=== PATIENT | female | born 1955 | race Caucasian/White ===

== ENCOUNTER → 2020-09-10 16:26 | Outpatient (CLI) | payer MEDICARE, SELFPAY ==
--- NOTE | ~2020-09-10 | MM_ITS ---
EXAMINATION: MM screening don BI w davina HISTORY: Screening mammogram TECHNIQUE: Craniocaudal and mediolateral oblique 3-D tomosynthesis images were obtained and synthetic 2-D images were generated. CAD analysis was submitted and interpreted. COMPARISON: MR , 08/10/2017 bilateral digital screening mammogram examinations BREAST PARENCHYMAL COMPOSITION: The breasts are almost entirely fatty. FINDINGS: There is no evidence of suspicious mass, calcification, or architectural distortion to sugg est malignancy in either breast. There has been no suspicious interval change. IMPRESSION: 1. No mammographic evidence of malignancy. 2. Recommend routine screening mammography in one year. BI-RADS Category 1: Negative Reviewed, dictated and finalized at location A. 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
== END ==
PROVIDERS: PCP Internal Medicine; Visit Provider Internal Medicine
DX: Z12.31 Encounter for screening mammogram for malignant neoplasm of breast (principal)
CPT/HCPCS: 77063; 77067

== ENCOUNTER → 2022-01-11 13:34 | Outpatient (CLI) | payer MEDICARE, SELFPAY ==
--- NOTE | ~2022-01-11 | XR_ITS ---
EXAMINATION: XR chest 2V 01/11/2022 14:01 INDICATION: History of Covid. Shortness of breath. PROCEDURE: 2 view chest COMPARISON: No prior studies for comparison. FINDINGS: The lungs are clear. The cardiomediastinal silhouette is within normal limits. There are no pleural effusions. There is no pneumothorax suspected. Scoliosis. IMPRESSION: 1: NO ACUTE CARDIOPULMONARY DISEASE. Reviewed, dictated and finalized at location B.
--- NOTE | ~2022-01-11 | MM_ITS ---
EXAMINATION: MM screening don BI w davina HISTORY: Screening mammogram, family history of breast cancer in her sister. TECHNIQUE: Craniocaudal and mediolateral oblique 3-D tomosynthesis images were obtained and synthetic 2-D images were generated. CAD analysis was submitted and interpreted. COMPARISON: 09/10/2020, 12/13/2018 BREAST PARENCHYMAL COMPOSITION: The breasts are almost entirely fatty. FINDINGS: There is no evidence of suspicious mass, calcification, or architectural distortion to sugg est malignancy in either breast. There has been no suspicious interval change. IMPRESSION: 1. No mammographic evidence of malignancy. 2. Recommend routine screening mammography in one year. BI-RADS Category 1: Negative Reviewed, dictated and finalized at location A.
== END ==
PROVIDERS: PCP Internal Medicine; Visit Provider Internal Medicine
DX: Z12.31 Encounter for screening mammogram for malignant neoplasm of breast (principal); Z86.16 Personal history of COVID-19; R06.02 Shortness of breath
CPT/HCPCS: 71046; 77063; 77067

== ENCOUNTER 2022-12-17 13:49 | Outpatient (CLI) | payer MEDICARE, SELFPAY ==
--- NOTE | 2022-12-17 14:39 | ECG_ITS ---
Measurements Intervals [place] Rate: 72 P: 42 [place]: 150 QRS: 7 QRSD: 78 T: 13 QT: 360 QTc: 395 Interpretive Statements SINUS RHYTHM WITHIN NORMAL LIMITS NO PREVIOUS ECG AVAILABLE FOR COMPARISON Electronically Signed On 12-17-2022 15:35:51 SECOND CLASS WELDER by Lenard Haddad M.D.
[2022-12-17 15:10] LABS: Basophils Absolute Auto 0.1 K/mm3 (0.0-0.1); Basophils Percent Auto 1.1 % (0.2-1.2); Eosinophils Absolute Auto 0.1 K/mm3 (0-0.3); Eosinophils Percent Auto 1.6 % (0-4.4); Hematocrit 45.9 % (37.0-47.0); Hemoglobin 14.9 g/dL (12.0-15.0); Immature Granulocyte Absolute 0.01 K/mm3 (0.00-0.031); Immature Granulocyte Percent A 0.2 % (0-0.5); Lymphocytes Absolute Auto 1.23 K/mm3 (0.9-3.2); Lymphocytes Percent Auto 22.5 % (18.3-44.2); Mean Corpuscular HGB Conc 32.5 g/dl (32-36); Mean Corpuscular Hemoglobin 31.3 pg (26-34); Mean Corpuscular Volume 96.4 fl (80-100); Mean Platelet Volume 10.2 fl (7.4-10.4); Monocytes Absolute Auto 0.4 K/mm3 (0.1-0.6); Monocytes Percent Auto 7.1 % (2.6-8.5); Neutrophils Absolute Auto 3.7 K/mm3 (1.3-6.7); Neutrophils Percent Auto 67.5 % (45.5-73.1); Platelet Count Result 300 k/mm3 (150-375); Red Blood Count 4.76 M/mm3 (4.2-5.4); Red Cell Distribution Width 13.7 % (11.5-14.5); White Blood Count 5.5 K/mm3 (4.5-10.0)
[2022-12-17 15:20] LABS: Alanine Aminotransferase 21 U/L (6-35); Albumin Level 4.8 g/dL (3.5-5.1); Alkaline Phosphatase 76 U/L (38-126); Anion Gap 4 mmol/L (8-16); Aspartate Amino Transferase 24 U/L (14-36); Bilirubin,Total 0.6 mg/dL (0.2-1.3); Blood Urea Nitrogen 16 mg/dL (7-17); Calcium 9.5 mg/dL (8.4-10.2); Carbon Dioxide 31 mmol/L (22-30); Chloride 104 mmol/L (98-107); Estimated Glomerular Filt Rate > 60; Glucose 84 mg/dL (65-110); Potassium 4.4 mmol/L (3.4-5.0); Sodium 139 mmol/L (137-145)
[2022-12-17 15:22] LABS: Prothrombin Time 12.4 Seconds (11.1-14.7)
== END 2022-12-17 13:50 | disposition home or self-care (01) ==
PROVIDERS: PCP Family Medicine; Visit Provider Urology
DX: Z01.818 Encounter for other preprocedural examination (principal)
CPT/HCPCS: 36415; 80053; 85025; 85610; 85730; 86850; 86900; 86901; 93005

== ENCOUNTER 2022-12-27 01:33 | Day surgery (SDC) | payer MEDICARE, SELFPAY ==
[2022-12-17 13:59] VITALS: BMI 33.6
--- NOTE | 2022-12-17 14:20 | PC.NURSE ---
Addendum entered by Abbey Lewis RN 12/17/22 14:27: VITAMIN D3 HOLD 3 DAYS PRE OP.LAST DOSE 12/23/22 Original Note: Report to the Outpatient Waiting Room, entrance under the green pavilion located off [facility], at time ___0900____ on date _12/27/22 . Planned Procedure Time: __1100 . Time changes happen often and if your time is changed the preop area will call you the afternoon before. - You and your visitor will be asked to self-screen and do not enter if you have any COVID symptoms. - Only one visitor is requested with a max of two and NO children visitors are allowed at this time. - The patient visitor may be requested to leave or wait in car when not with patient due to distancing restrictions. - A mask is optional within the hospital at this time. Patients may have clear liquids (water, carbonated beverages, clear teas, apple juice) until 3 hours prior to surgery with a maximum of 20 ounces. - No food from midnight until time of surgery - Infants may have breast milk until 4 hours before surgery, formula 6 hours prior to surgery. - Children will be allowed to drink immediately following surgery. If applicable, please bring a bottle or sippy cup to assist with drinking. Juice, water, soda, and popsicles are readily available. For infants on formula, please bring formula the day of surgery. Pacifiers are allowed. Take the following medications with a SIP of water the morning of surgery: _FLUOXETINE DO NOT STOP ANY OF YOUR OTHER PRESCRIPTION MEDICATIONS PRIOR TO SURGERY ?EXCEPT THE FOLLOWING Medications to discontinue per physician ___PT STATES HOLD MELOXICAM 7 DAYS PRE OP PER DR MARIA. LAST DOSE 12/19/22 Please no make-up, nail egyptian, hairspray, perfume, deodorant, or body powder the day of surgery. No jewelry (including any body piercings) or valuables the day of surgery, leave them at home. Please take a shower or bath the night before, or the morning of, surgery with an antibacterial soap. Wear comfortable, loose fitting clothing. Children are encouraged to wear pajamas. - Jewelry must be removed prior to entering the operating room. Rings and piercings that are not removed may be cut off. - The hospital will not accept responsibility for valuables. - Please leave all valuables, including medications, at home the day of surgery. If you are going home after surgery, a licensed explosives truck driver must drive you home. - NO public transportation without another adult if you receive anesthesia. - We recommend that an adult stay with you for 24 hours following discharge. - We also recommend that you do not drive, make important decision, drink alcoholic beverages, or take any drugs that were not prescribed by your health care provider for at least 24 hours after your discharge time. For Pediatric surgeries, we recommend two adults accompany the child home. Follow any additional instructions given to you from your surgeon. If you or anyone in your household have experienced Covid symptoms in the past week, please notify your surgeon or the nurse liaison at the phone number below for possible testing. VERBAL AND WRITTEN instructions given to __PATIENT and asked if any additional questions and then verbalized understanding. Patient advised to call surgeon office or pre surgery nurse liaison [phone] if any additional questions.
[2022-12-17 14:37] VITALS: BP 155/89; PULSE 81; RESP 18; TEMP 37.2; O2SAT 98
--- NOTE | 2022-12-24 10:45 | PM.IMHP ---
H&P: HPI History of Present Illness Date/Time: 12/24/22 10:45 Chief Complaint: pelvic organ prolapse Narrative: this is a woman Who is status post hysterectomy. She has cystocele and loss of apical support. She has stress incontinence on urodynamics. She has a fixed urethra. She desires surgical correction. Review of Systems Review of Systems: All systems reviewed & are unremarkable except as noted in HPI and below PMFSH Past Medical History Medical History GENARO (generalized anxiety disorder) GERD (gastroesophageal reflux disease) MDD (major depressive disorder), recurrent episode Normal colonoscopy 12/2021 Surgical History Surgical History Hx of total knee arthroplasty bilateral S/P ORIF (open reduction internal fixation) fracture L ankle S/P JUAN-BSO Family History Family History Father Lung cancer Mother Pancreas cancer Diabetes mellitus Depression Heart disease Social History Social History Social History: Single Smoking packs per day: 0.5 Smoking cigarettes per day: 10.0 Years smoked: 20 Smoking pack-years: 10.00 Smoking status: Former smoker Tobacco type: cigarettes Second hand tobacco smoke exposure: No Smoking end date: 10/31/13 Alcohol intake: never Substance use: never Substance use type: does not use Living arrangements: alone Occupation/Education: occupation Gender identity (if verbalized by the patient): Female Sexual Orientation (if Verbalized by the Patient): Straight or Heterosexual Spiritual care concerns: No Meds Home Medications and Allergies Home Medications Medication Instructions Recorded Confirmed Type mecobalamin (vitamin B12) 10,000 1,000 mcg subcut MONTHLY 06/15/22 12/17/22 History mcg solution for injection meloxicam 7.5 mg tablet 7.5 mg PO BID #60 tabs 07/13/22 12/17/22 Rx fluoxetine 40 mg capsule (Prozac) 40 mg PO DAILY #90 caps 08/16/22 12/17/22 Rx pantoprazole 40 mg tablet,delayed 40 mg PO QAM #90 tabs 08/16/22 12/17/22 Rx release (Protonix) cholecalciferol (vitamin D3) 25 25 mcg PO DAILY 12/17/22 12/17/22 History mcg (1,000 unit) tablet semaglutide 1 mg/dose (4 mg/3 mL) 1 mg subcut WEEKLY WEIGHT LOSS 12/17/22 12/17/22 History subcutaneous pen injector (Ozempic) irbesartan 150 mg tablet 150 mg PO DAILY #30 tabs 12/21/22 12/21/22 Rx quetiapine 25 mg tablet (Seroquel) 25 mg PO QHS #60 tabs 12/21/22 12/21/22 Rx Allergies Allergy/AdvReac Type Severity Reaction Status Date / Time No Known Allergies Allergy Unknown Verified 12/21/22 13:29 Exam Narrative: No acute distress normal breathing vaginal foreshortening cystocele +3 apex at 0 fixed urethra Assessment and Plan Assessment and plan (1) Prolapse of vaginal vault after hysterectomy: Code(s): N99.3 - Prolapse of vaginal vault after hysterectomy Status: Acute (2) Intrinsic sphincter deficiency (ISD): Code(s): N36.42 - Intrinsic sphincter deficiency (ISD) Status: Acute Plan plan for robotic sacral colpopexy. Understands risks of bleeding, infection, damage surrounding organs or the urinary tract, inability to perform the procedure due to adhesions, recurrence of prolapse, dyspareunia, hip and leg pain, recurrent or persistent stress incontinence, urinary retention requiring a 2nd procedure, mesh related complications. Agrees to proceed
[2022-12-27] VITALS (8 sets, daily range): BP systolic 124–157; BP diastolic 66–113; PULSE 68–94; RESP 10–20; TEMP 36.6–37.2; O2SAT 98–100
--- NOTE | 2022-12-27 07:14 | WPDHPUPDATE1 ---
History and Physical Update Update Date/Time: 12/27/22 07:14 History and Physical has been reviewed, including an updated exam of the patient. There are NO changes in the patient's condition. Risks, benefits, and alternatives have been discussed and questions answered. Patient agrees to proceed with procedure.
[2022-12-27] MEDS: LACTATED RINGERS 1,000 ML 30 ML IV CONT ×2 (09:42→14:11)
--- NOTE | 2022-12-27 10:49 | WPDANESEPPF ---
Anes - Initial Pre Proc Eval Procedure: Operation Date: 12/27/22 11:00 Proposed Procedures p Robotic Sacrocolpopexy, - Chris Chowdhury MD s Cystoscopy, Injection Bulking Agent - Chris Chowdhury MD Date/Time: 12/27/22 10:49 Surgeon: Chris Chowdhury MD Pre Op Diagnosis: stress incont, incomp prolapse vag vault Patient Data Age: 67 Gender: F Height: 1.63 m Weight: 88.3 kg Last Vital Signs Temp 37.2 C 12/27/22 09:18 Pulse 84 12/27/22 09:18 Resp 16 12/27/22 09:18 BP 148/86 H 12/27/22 09:18 Pulse Ox 100 12/27/22 09:18 O2 Del Method Room Air 12/27/22 09:18 Allergies Allergy/AdvReac Type Severity Reaction Status Date / Time No Known Allergies Allergy Unknown Verified 12/27/22 09:08 Home Medications Medication Instructions Recorded Confirmed Type mecobalamin (vitamin B12) 10,000 1,000 mcg subcut MONTHLY 06/15/22 12/27/22 History mcg solution for injection meloxicam 7.5 mg tablet 7.5 mg PO BID #60 tabs 07/13/22 12/27/22 Rx fluoxetine 40 mg capsule (Prozac) 40 mg PO DAILY #90 caps 08/16/22 12/27/22 Rx pantoprazole 40 mg tablet,delayed 40 mg PO QAM #90 tabs 08/16/22 12/27/22 Rx release (Protonix) cholecalciferol (vitamin D3) 25 25 mcg PO DAILY 12/17/22 12/27/22 History mcg (1,000 unit) tablet semaglutide 1 mg/dose (4 mg/3 mL) 1 mg subcut WEEKLY WEIGHT LOSS 12/17/22 12/27/22 History subcutaneous pen injector (Ozempic) irbesartan 150 mg tablet 150 mg PO DAILY #30 tabs 12/21/22 12/27/22 Rx quetiapine 25 mg tablet (Seroquel) 25 mg PO QHS #60 tabs 12/21/22 12/27/22 Rx Patient hx anesthesia problems: none Family hx anesthesia problems: none Results Review: All pre-operative results and documents have been reviewed as part of the pre-operative evaluation. [facility] Past Medical History Medical History (Updated 12/27/22 @ 10:49 by Rodolfo Chaudhry MD) Arthritis GENARO (generalized anxiety disorder) GERD (gastroesophageal reflux disease) MDD (major depressive disorder), recurrent episode Normal colonoscopy 12/2021 Surgical History Surgical History Hx of total knee arthroplasty bilateral S/P ORIF (open reduction internal fixation) fracture L ankle S/P JUAN-BSO Family History Family History Father Lung cancer Mother Pancreas cancer Diabetes mellitus Depression Heart disease Social History Social History Social History: Single Smoking packs per day: 0.5 Smoking cigarettes per day: 10.0 Years smoked: 20 Smoking pack-years: 10.00 Smoking status: Former smoker Tobacco type: cigarettes Second hand tobacco smoke exposure: No Smoking end date: 10/31/13 Alcohol intake: never Substance use: never Substance use type: does not use Living arrangements: alone Occupation/Education: occupation Gender identity (if verbalized by the patient): Female Sexual Orientation (if Verbalized by the Patient): Straight or Heterosexual Spiritual care concerns: No Anes - Eval Final PreProcedure Day of Procedure 12/27/22 10:49 Patient weight: obese Heart: regular rate and rhythm Lungs: clear to auscultation Airway: Mallampati scale class II Neurological: alert and oriented Last oral intake: >/= 8 hours ASA classification: III Emergent: no Anesthetic plan: proceed Anesthesia type and monitoring: general ETT and standard monitoring Results Review: All pre-operative results and documents have been reviewed as part of the pre-operative evaluation. Informed Consent: The patient's anesthetic plan and its attendant risks and benefits were discussed with the patient/family/POA. Questions were solicited and answers provided to the satisfaction of the patient/family/POA.
[2022-12-27] MEDS: ceFAZolin 2 GM/D5W 50 ML 2 GM/50 ML BAG IVPB (11:10)
--- NOTE | 2022-12-27 14:15 | W.PM.PROC2 ---
Procedure Note - Detailed Date of Procedure 12/27/22 Pre-op Diagnosis Vaginal vault prolapse, intrinsic sphincter deficiency Post-op Diagnosis Same Procedure Performed Robotic assisted laparoscopic sacral colpopexy Cystoscopy with transurethral injection of implant material Surgeon Chris Chowdhury MD Anesthesia General Indications This is a woman with post hysterectomy vaginal vault prolapse as well as stress urinary incontinence due to intrinsic sphincter deficiency. She desires surgical correction. She understands risks of bleeding, infection, diskitis, damage to surrounding organs, damage to the bowel or urinary tract, recurrence of prolapse, dyspareunia, vaginal mesh exposure, urinary tract mesh exposure, obstructive voiding requiring secondary procedure, persistent or recurrent stress incontinence, hip and leg pain, and other perioperative intraoperative and postoperative complications. She is to proceed Findings Pelvic organ prolapse, fixed urethra, foreshortened vagina, intra-abdominal adhesions Description of Procedure She was correctly identified. Informed consent obtained. She is brought to the operating room. She was given general anesthesia. She was placed in the lithotomy position. She was given appropriate perioperative antibiotics. She was prepped and draped in a sterile fashion. A time-out performed. I anesthetized the skin 3 fingerbreadths cephalad to the umbilicus. I incised the skin. I located the fascia. I grasped the fascia with Kenyatta clamps. I incised the fascia sharply and a Doss type technique. I placed Vicryl sutures for later fascial closure. I placed a midline trocar. Under direct vision placed 2 additional trocars in the right upper quadrant and 2 additional trocars in the left upper quadrant. She was placed in steep Trendelenburg. The robot was docked. I sat at the console. She had adhesions of omentum and small bowel to the anterior abdominal wall. I took all these adhesions down sharply. I did not use cautery. I took great care not to injure the bowel. I examined the bowel. There were some serosal abrasions to the small bowel as well as to the colon. There was no luminal violation. With the Sizer in the vagina and created a plane on the anterior and posterior vaginal wall for several cm taking great care not to injure the vagina, bladder, or rectum. Of note there was quite a bit of scarring on the anterior vaginal wall i introduced the mesh into the vagina. I sewed the anterior leaflet of mesh on the anterior vaginal wall and posterior leaf of the mesh on the posterior vaginal wall with several sutures of 2 0 Austin-Wild taking great care not to go through and through. I then opened up the peritoneum over the sacral promontory. I carried this incision into the cul-de-sac. I freed up the edges for later retroperitonealization of the mesh. I located the anterior longitudinal ligament of the sacrum. I cleaned off any fatty tissues. I then tensioned my mesh appropriately. I did a vaginal exam to ensure prolapse reduction without undue tension. I then sewed the proximal leaflet of mesh onto the ligament with several sutures of 2 0 Austin-Wild. I then used a 2 0 Monocryl to meticulously retroperitonealized all mesh. I allowed the colon to go back into its normal anatomic location. There is no sign of impingement. I examined all the bowels. I examined especially the areas of the adhesiolysis. I used a 2-[address] 2 limBert stitches over the colon at the area of the serosal abrasion. I also reexamine the small bowel. There was 2 areas of serosal abrasions. I did interrupted Lembert sutures here as well. The abdomen was then exited and the trocars review. Fascial sutures were closed. The wounds were all irrigated and closed with 4 O Monocryl and skin glue. She was then repositioned and prepped for cystoscopy.. The bladder showed no evidence of surgical artifact or tumor. Both ureters
[2022-12-27] MEDS: fentaNYL CITRATE INJ (*CRX) 100 MCG/2 ML VIAL 25 MCG IV PUSH ×6 (14:45→15:24)
--- NOTE | 2022-12-27 15:34 | ADMGEN ---
This patient, Lupe Dai, was admitted to OB 2nd Floor Room 279-00. Patient/family oriented to hospital policies and general routines including ID bracelet, bed and alarms, visiting hours, pain management, procedures, bathroom and other care routines, personal items, smoking policy, room service/diet, and visiting hours. Information on how to activate the Rapid Response Team has been discussed. Patient/Family are encouraged to report perceived risks to care and to ask questions if they do not understand what they are told or what they should do.
[2022-12-27] MEDS: KCL 20 MEQ/D5/0.45% SOD CHL 1,000 ML 100 ML IV CONT (16:04)
[2022-12-27] MEDS: metroNIDAZOLE 500 MG/ISO 100ML 500 MG/100 ML BAG 100 MG IVPB (16:06)
[2022-12-27] MEDS: MORPHINE SULFATE (*CRX) 2 MG/ML INJ IV PUSH (16:09)
[2022-12-27] MEDS: KETOROLAC 15 MG/ML VIAL (*BKC) IV PUSH (22:02)
[2022-12-27] MEDS: HYDROcodone/acetaminophen (*CRX) 5-325 MG TABLET 1 TAB PO (22:02)
[2022-12-27] MEDS: QUEtiapine FUMARATE 25 MG TABLET PO (22:07)
[2022-12-28 03:15] VITALS: BP 111/62; PULSE 94; RESP 16; TEMP 37.1
[2022-12-28 07:55] VITALS: BP 106/68; PULSE 89; RESP 16; TEMP 37.6; O2SAT 100
--- NOTE | 2022-12-28 07:56 | WPDANESPN ---
Anes - Prog Note Post-Op Date/Time: 12/28/22 07:56 Cardiovascular status: normal Respiratory status: normal Airway patency: baseline Mental status: baseline Post-Op hydration status: normal Vital Signs: Last Vital Signs Temp 98.8 F 12/28/22 03:15 Pulse 94 12/28/22 03:15 Resp 16 12/28/22 03:15 BP 111/62 12/28/22 03:15 Pulse Ox 100 12/27/22 15:45 O2 Del Method Room Air 12/27/22 15:45 O2 Flow Rate 8 12/27/22 14:45 Pain Score (VAS): 0/10 I/O: Intake & Output 12/27/22 12/27/22 12/28/22 15:59 23:59 07:59 Intake Total 1450 748 500 Output Total 1130 750 Balance 1450 382 250 Post-procedural complaints: none Patient Feedback: Patient satisfied with anesthetic care.
--- NOTE | 2022-12-28 09:00 | PC.NURSE ---
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 PT received such instructions per one to one discussion and demonstrations per shift. PT sole recipient of such instructions and no barriers to learning identified at this time. PT verbalized understanding of such care.
[2022-12-28] MEDS: PANTOPRAZOLE 40 MG TABLET PO (09:34)
[2022-12-28] MEDS: DOCUSATE SODIUM 100 MG CAPSULE PO (09:34)
[2022-12-28] MEDS: FLUoxetine HCL 20 MG CAPSULE 40 MG PO (09:35)
[2022-12-28] MEDS: HYDROcodone/acetaminophen (*CRX) 5-325 MG TABLET 1 TAB PO ×2 (09:35→14:38)
[2022-12-28] MEDS: IRBESARTAN 150 MG TABLET PO (09:36)
[2022-12-28] MEDS: ENOXAPARIN 30 MG/0.3 ML SYRINGE SUB-Q (09:36)
[2022-12-28] MEDS: CEPHALEXIN 500 MG CAPSULE PO (11:00)
--- NOTE | 2022-12-28 13:55 | WPDUROPN2 ---
Progress Note: A&P Assessment and Plan (1) Prolapse of vaginal vault after hysterectomy: Code(s): N99.3 - Prolapse of vaginal vault after hysterectomy Status: Acute Assessment and Plan: Ok to discharge home with betancourt. F/U in 2 days for voiding trial in the office. Subjective Subjective Date/Time Seen: 12/28/22 13:55 The patient failed her voiding trail and had her Betancourt replaced. She will f/u later this week for another voiding trial. She is doing very well and tolerating diet and activity well. S/P Robotic Assisted Laparoscopic Sacral Colpopexy, Cystoscopy with transurethral injection of implant material. She was also noted to have intra abdominal adhesions that were removed intra operatively. Post Op day: 1 Review of Systems Respiratory: Respiratory: Reports no additional respiratory complaints Gastrointestinal: Gastrointestinal: Denies abdominal pain, Denies nausea and Denies vomiting Genitourinary: Genitourinary: Reports urinary frequency Exam Const: General: cooperative and comfortable Resp: Effort & Inspection: normal respiratory effort Cardio: Rate: regular rate GI: Inspection: incision (all are well approximated and no drainage and edema present) GI Palp: Yes Soft to palpation and No Tenderness to palpation present (GI) : General: Yes no CVA tenderness Urinary Catheter: Urinary Catheter: patent and draining and urine clear Extrem: Right lower extremity: no edema Left lower extremity: no edema Objective Data Vital Signs Vital Signs: Vital Signs - 24 hr 12/27/22 14:15 12/27/22 14:30 12/27/22 14:45 Temperature 97.9 F Pulse Rate 94 71 70 Respiratory Rate 13 12 10 L Blood Pressure 157/72 H 133/113 H 139/66 Pulse Oximetry 100 100 100 Oxygen Delivery Simple Face Mask Simple Face Mask Simple Face Mask Oxygen Flow Rate 8 8 8 12/27/22 15:00 12/27/22 15:15 12/27/22 15:45 Temperature Pulse Rate 72 77 Respiratory Rate 16 13 Blood Pressure 125/72 128/66 Pulse Oximetry 99 98 Oxygen Delivery Room Air Room Air Room Air Oxygen Flow Rate 12/27/22 15:45 12/27/22 20:00 12/28/22 03:15 Temperature 98.1 F 98.1 F 98.8 F Pulse Rate 68 78 94 Respiratory Rate 16 20 16 Blood Pressure 124/78 143/71 H 111/62 Pulse Oximetry 100 Oxygen Delivery Oxygen Flow Rate 12/28/22 07:55 Temperature 99.6 F Pulse Rate 89 Respiratory Rate 16 Blood Pressure 106/68 Pulse Oximetry 100 Oxygen Delivery Oxygen Flow Rate Intake/Output Intake/Output: Intake & Output 12/25/22 12/26/22 12/27/22 12/28/22 23:59 23:59 23:59 23:59 Intake Total 2198 1480 Output Total 1130 1400 Balance 1068 80 Meds/Results Medications: Active Medications Generic Name Dose Route Start Last Admin Trade Name Freq PRN Reason Stop Dose Admin Acetaminophen 650 mg 12/27/22 15:28 Acetaminophen 325 Mg Tablet PO Q4H PRN Mild Pain (1-3) or Fever Hydrocodone Bitart/Acetaminophen 1 tab 12/27/22 15:28 12/28/22 09:35 Hydrocodone/Acetaminophen (*Crx) 5-325 Mg Tablet PO 1 tab Q4H PRN Administration Pain Rated 4-5 Cephalexin HCl 500 mg 12/28/22 13:00 12/28/22 11:00 Cephalexin 500 Mg Capsule PO 500 mg QID SRINATH Administration Diphenhydramine HCl 25 mg 12/27/22 15:28 Diphenhydramine Hcl Inj 50 Mg/Ml Vial IV PUSH Q6H PRN Itching Docusate Sodium 100 mg 12/28/22 09:00 12/28/22 09:34 Docusate Sodium 100 Mg Capsule PO 100 mg DAILY SRINATH Administration Enoxaparin Sodium 30 mg 12/28/22 09:00 12/28/22 09:36 Enoxaparin 30 Mg/0.3 Ml Syringe SUB-Q 30 mg DAILY SRINATH Administration Fluoxetine HCl 40 mg 12/28/22 09:00 12/28/22 09:35 Fluoxetine Hcl 20 Mg Capsule PO 40 mg DAILY SRINATH Administration Irbesartan 150 mg 12/28/22 09:00 12/28/22 09:36 Irbesartan 150 Mg Tablet PO 150 mg DAILY SRINATH Administration Ketorolac Tromethamine 15 mg 12/27/22 15:28 12/27/22 22:02 Ketorolac 15 Mg/Ml Vial (*B
--- NOTE | 2022-12-28 14:15 | PC.NURSE ---
PT was given instructions and demonstration on catheter leg bag and abdominal binder.
--- NOTE | 2022-12-28 14:30 | PC.NURSE ---
PT and her daughter received discharge instructions per protocol and was given opportunity to have any questions or concerns addressed.Pt verbalized understanding of such instructions.
--- NOTE | 2022-12-28 15:00 | PC.NURSE ---
PT discharged to home via wheelchair accompanied by daughter and taken to waiting car. follow up appts confirmed
== END 2022-12-28 15:00 | disposition home or self-care (01) ==
LOC: ANHSURGERY 14:20 → ANHOB2 15:30
PROVIDERS: PCP Family Medicine; Visit Provider Urology
PROC: (CPT 57425; principal; 2022-12-27 11:00)
PROC: 3E0K8GC Introduction of Other Therapeutic Substance into Genitourinary Tract, Via Natural or Artificial Opening Endoscopic (ICD-10-PCS; CPT 57425; 2022-12-27 11:00)
DX: N99.3 Prolapse of vaginal vault after hysterectomy (principal); N36.42 Intrinsic sphincter deficiency (ISD); K66.0 Peritoneal adhesions (postprocedural) (postinfection); N36.8 Other specified disorders of urethra; K21.9 Gastro-esophageal reflux disease without esophagitis; F41.1 Generalized anxiety disorder; F33.9 Major depressive disorder, recurrent, unspecified; Z79.899 Other long term (current) drug therapy; Z87.891 Personal history of nicotine dependence; E66.9 Obesity, unspecified; Z68.33 Body mass index [BMI] 33.0-33.9, adult
CPT/HCPCS: 57425; 51715; S2900; 36415; 80053; 85025; 85610; 85730; 86850; 86900; 86901; 93005; 99199; A9270; C1781; C9290; J0690; J1100; J1170; J1650; J1885; J2250; J2270; J2405; J2704; J2710; J3010; J3480; J7030; J7120; L8606

== ENCOUNTER → 2023-05-16 13:15 | Outpatient (CLI) | payer MEDICARE, SELFPAY ==
--- NOTE | ~2023-05-16 | MM_ITS ---
EXAMINATION: MM screening don BI w davina HISTORY: Screening TECHNIQUE: Craniocaudal and mediolateral oblique 3-D tomosynthesis images were obtained and synthetic 2-D images were generated. CAD analysis was submitted and interpreted. COMPARISON: Comparison to multiple prior studies sequentially, with oldest reviewed study dated 07/31. BREAST PARENCHYMAL COMPOSITION: Breast composition is almost entirely fatty FINDINGS: There is no evidence of suspicious mass, calcification, or architectural distortion to sugg est malignancy in either breast. There has been no suspicious interval change. IMPRESSION: 1. No mammographic evidence of malignancy. 2. Recommend routine screening mammography in one year. BI-RADS Category 1: Negative Reviewed, dictated and finalized at location A.
--- NOTE | ~2023-05-16 | DEXA_ITS ---
Bone Density Report Name: TANJA CURIEL Age: 68 Sex: Female Ethnicity: White Date of : 1955 Indication: postmenopausal; screening for osteoporosis; height loss; hysterectomy; Referring Provider: ALEX GUILLORY Study: Bone densitometry was performed. Exam Date: May 16, 2023 Accession number: [id number] Bone Density: Region BMD T-score Z-score Classification AP Spine (L1-L4) 1.119 0.7 2.7 Normal Femoral Neck (Left) 0.756 -0.8 0.9 Normal Total Hip (Left) 0.898 -0.4 1.1 Normal Femoral Neck (Right) 0.781 -0.6 1.1 Normal Total Hip (Right) 0.847 -0.8 0.7 Normal Total Hip Mean 0.873 -0.6 0.9 Normal World Health Organization criteria for BMD impression classify patients as: Normal (T-score at or above -1.0), Osteopenia (T-score between -1.0 and -2.5), or Osteoporosis (T-score at or below -2.5). 10-year Fracture Risk: FRAX not reported because: All T-scores for Spine Total, Hip Total, Femoral Neck at or above -1.0 Clinical Information Provided by Patient: Has used the following medications: Vitamin D Has the following medical conditions: Hysterectomy Patient maximum height was 66 Menopause Age: 36 No regular weight bearing exercise Does not regularly consume dairy products Onset of menses at age 12 Number of children 2 Impression: The patient has normal bone mass. Discussion: BONE DENSITY IS ABOVE THE MINIMUM DESIRABLE LEVEL AT ALL SKELETAL SITES TESTED. This patient?s bone mineral density is above the minimum desirable level (T-score -1.0 or better) at all sites measured. The patient should follow a healthful lifestyle (good nutrition with adequate calcium and vitamin D, and appropriate weight-bearing exercise). Follow-Up: Consider repeating this study in 5 years or sooner if there is some new clinical indication. Reported by: EVA on 05/16/2023 1:52:00 PM. Reviewed, dictated and finalized at location AMatty GRIFFITH
== END ==
PROVIDERS: PCP Family Medicine; Visit Provider Family Medicine
DX: Z12.31 Encounter for screening mammogram for malignant neoplasm of breast (principal); Z78.0 Asymptomatic menopausal state
CPT/HCPCS: 77063; 77067; 77080

== ENCOUNTER 2023-09-28 17:26 | Emergency (ER) | payer MEDICARE, SELFPAY ==
--- NOTE | ~2023-09-28 | CT_ITS ---
EXAMINATION: CT cervical spine wo con DATE: 09/28/2023 19:13 INDICATION: trauma TECHNIQUE: Computed tomography (CT) of the cervical spine was performed without intravenous contrast. Automated exposure control and iterative reconstruction technique were employed. The dose-length pro duct was 428.70 mGy-cm. COMPARISON: None. FINDINGS: Vertebral Body Alignment: Intact. Reversed lordosis centered at C5-6. Craniocervical and atlantoaxial alignment: Moderate degenerative change. Alignment intact. Osseous structures/fracture: No evidence of a lytic or blastic process in the visualized spine. No e vidence of acute fracture. Cervical soft tissues: The paraspinal soft tissues planes are maintained. Emphysematous and mild tristan atous changes in the lungs. 9 mm left thyroid nodule which requires no additional workup at this time . Degenerative changes: Degenerative changes, without severe neural foraminal or central canal narrowin g. IMPRESSION: No acute fracture or traumatic malalignment in the cervical spine. Reviewed, dictated and finalized at location K. GENERALIST
--- NOTE | ~2023-09-28 | CT_ITS ---
EXAMINATION: CT brain wo con DATE: 09/28/2023 19:13 INDICATION: trauma . TECHNIQUE: Computed tomography (CT) of the head was performed without intravenous contrast. The mA wa s adjusted according to patient size. Iterative reconstruction technique was employed. The dose-lengt h product was 681.00 mGy-cm. COMPARISON: None. FINDINGS: No acute intracranial hemorrhage or extra-axial fluid collection. No hydrocephalus, mass, or herniation. No acute ischemic infarct. Unremarkable dural venous sinus attenuation. No acute osseous abnormality. Air-fluid level and aerated secretions in the sphenoid and right maxillary sinuses. Ethmoid mucosal t hickening. The remaining aerated spaces are clear. IMPRESSION: No acute intracranial process. Right maxillary and sphenoid air-fluid levels, may represent acute sinusitis or small volume mucosal hemorrhage in the setting of trauma. Reviewed, dictated and finalized at location K. TECHNICIAN
--- NOTE | ~2023-09-28 | XR_ITS ---
EXAM: XR shoulder RT min 2V, XR humerus RT DATE: 09/28/2023 18:07 HISTORY: FALL, PAIN . COMPARISON: None available. FINDINGS: Limited orthogonal view of the right humerus. Decreased mineralization. Mildly comminuted fracture of the proximal right humeral head, with involvement of the greater trochanter and mild impa ction/angulation. No lytic or blastic lesion. Joint spaces are maintained. No erosion or periosteal c hange. Soft tissues within normal limits. IMPRESSION: Comminuted right humeral head fracture with involvement of the greater trochanter. Reviewed, dictated and finalized at location K. CUTTER IMPRESSION: Comminuted right humeral head fracture with involvement of the grea ter trochanter.
[2023-09-28 17:18] VITALS: BP 160/79; PULSE 77; RESP 20; TEMP 36.6; O2SAT 100
--- NOTE | 2023-09-28 18:17 | ED.FALL ---
HPI - Fall General Chief Complaint: Fall Stated Complaint: arm injury Time Seen by Provider: 09/28/23 17:48 History of Present Illness HPI Narrative: Patient is a 68-year-old female with history of hypertension here after a fall at home. She states that she was walking and tripped over her feet and fell down onto her right side. She believes she landed on her right shoulder. Had immediate pain any ambulance was called. She received 100 mcg of fentanyl EN route with no improvement of her pain. She notes any movement of pain of that right arm hurts. She does believe that she hit the back of her head, does not believe she lost consciousness. She is not on any blood thinners. No prodromal chest pain, light headedness or shortness of breath. Related Data Home Medications Medication Instructions Recorded Confirmed mecobalamin (vitamin B12) 10,000 1,000 mcg subcut MONTHLY 06/15/22 05/24/23 mcg solution for injection cholecalciferol (vitamin D3) 25 25 mcg PO DAILY 12/17/22 05/24/23 mcg (1,000 unit) tablet Allergies Allergy/AdvReac Type Severity Reaction Status Date / Time No Known Allergies Allergy Unknown Verified 09/28/23 17:41 Review of Systems Review of Systems: All systems reviewed & are unremarkable except as noted in HPI and below PMFSH Past Medical History Medical History (Updated 09/28/23 @ 20:24 by Tata Willams MD) Arthritis Cystocele Cystocele with prolapse Elevated BP without diagnosis of hypertension Fitting and adjustment of pessary GENARO (generalized anxiety disorder) GERD (gastroesophageal reflux disease) MDD (major depressive disorder), recurrent episode Normal colonoscopy 12/2021 Prolapse of bladder Prolapse of vaginal vault after hysterectomy Surgical History Surgical History Hx of total knee arthroplasty bilateral S/P ORIF (open reduction internal fixation) fracture L ankle S/P JUAN-BSO Family History Family History Father Lung cancer Mother Pancreas cancer Diabetes mellitus Depression Heart disease Social History Social History Social History: Single Smoking packs per day: 0.5 Smoking cigarettes per day: 10.0 Years smoked: 20 Smoking pack-years: 10.00 Smoking status: Former smoker Tobacco type: cigarettes Second hand tobacco smoke exposure: No Smoking end date: 10/31/13 Alcohol intake: never Substance use: never Substance use type: does not use Living arrangements: alone Occupation/Education: occupation Gender identity (if verbalized by the patient): Female Sexual Orientation (if Verbalized by the Patient): Straight or Heterosexual Spiritual care concerns: No Exam Narrative: GENERAL: Well-appearing, well-nourished, and in no acute distress. HEAD: Normocephalic, atraumatic. EYES: PERRLA and EOMI. ENT: Nares clear. Mucous membranes moist. NECK: Supple. CHEST: Clear to auscultation. No respiratory distress. HEART: Regular rate and rhythm. Normal peripheral pulses. ABDOMEN: Soft, nontender, nondistended. EXTREMITIES: Diffuse tenderness over the right humerus with decreased range of motion of the shoulder due to pain. Decreased range of motion of the elbow due to pain in the humerus. Strong radial pulse with normal strength and sensation in the hand. Hand and arm are warm to touch. Left upper extremity traumatic, pelvis stable, nontender bilateral lower extremities with no evidence of trauma. SKIN: Warm, dry, no rash. NEURO: No focal deficits. Alert and oriented x3. PSYCH: Normal mood and affect. Course Course Emergency Course: Chart review performed, patient here after a fall at home onto right shoulder. 100 mg of fentanyl given in route. Hypertensive otherwise normal triage vitals. PCP visit from 05/24/2023 reviewed. They note history of arthritis, anxiety, hyp
[2023-09-28] MEDS: ONDANSETRON INJ 4 MG/2 ML VIAL IV PUSH (18:40)
[2023-09-28] MEDS: MORPHINE SULFATE (*CRX) 4 MG/ML INJ IV PUSH (18:41)
[2023-09-28] MEDS: HYDROmorphone HCL INJ (*CRX) 1 MG/ML SYR IV PUSH (19:38)
[2023-09-28 20:56] VITALS: BP 152/78; PULSE 82; RESP 16; O2SAT 98
== END 2023-09-28 20:57 | disposition home or self-care (01) ==
PROVIDERS: Emergency Provider Student in an Organized Health Care Education/Training Program; PCP Family Medicine
DX: S42.211A Unspecified displaced fracture of surgical neck of right humerus, initial encounter for closed fracture (principal); I10 Essential (primary) hypertension; Z87.891 Personal history of nicotine dependence; W01.0XXA Fall on same level from slipping, tripping and stumbling without subsequent striking against object, initial encounter; Y92.009 Unspecified place in unspecified non-institutional (private) residence as the place of occurrence of the external cause
CPT/HCPCS: 70450; 72125; 73030; 73060; 96374; 96375; 99284; J1170; J2270; J2405

== ENCOUNTER 2024-04-17 16:49 | Outpatient (CLI) | payer MEDICARE, SELFPAY ==
--- NOTE | ~2024-04-17 | XR_ITS ---
EXAM: XR hip BI 2V w AP pelvis DATE: 04/17/2024 17:01 HISTORY: fall . COMPARISON: 08/17/2018. FINDINGS: Decreased mineralization. No fracture or dislocation. No lytic or blastic lesion. Mild deg enerative change in the bilateral hip joints. Chondrocalcinosis of the pubic symphysis. Lumbar degene rative disc disease. Mild enthesopathy at the greater trochanters. Normal SI joints. No erosion or pe riosteal change. Soft tissues within normal limits. IMPRESSION: No acute osseous finding in the pelvis or bilateral hips. Mild bilateral hip osteoarthrit is. Reviewed, dictated and finalized at location K. IMPRESSION: No acute osseous finding in the pelvis or bilateral hips. Mild bila teral hip osteoarthritis.
== END 2024-04-17 16:50 ==
PROVIDERS: PCP Family Medicine; Visit Provider Family Medicine
DX: M25.559 Pain in unspecified hip (principal); W19.XXXA Unspecified fall, initial encounter
CPT/HCPCS: 73521

== ENCOUNTER 2024-09-17 12:33 | Outpatient (CLI) | payer MEDICARE, SELFPAY ==
--- NOTE | ~2024-09-17 | MM_ITS ---
EXAMINATION: MM screening don BI w davina HISTORY: Screening mammogram, family history of breast cancer in her sister. TECHNIQUE: Craniocaudal and mediolateral oblique 3-D tomosynthesis images were obtained and synthetic 2-D images were generated. CAD analysis was submitted and interpreted. COMPARISON: 05/16/2023, 01/11/2022, 09/10/2020 BREAST PARENCHYMAL COMPOSITION:Not Dense. The breasts are almost entirely fatty FINDINGS: No suspicious mass, calcification, or architectural distortion are identified in either anna ast to suggest malignancy. There has been no suspicious interval change. IMPRESSION: No mammographic evidence of malignancy. Recommend routine screening mammography in one year. BI-RADS Category 1: Negative Reviewed, dictated and finalized at location . IDE DIE MAKER
== END 2024-09-17 12:34 | disposition home or self-care (01) ==
PROVIDERS: PCP Family Medicine; Visit Provider Family Medicine
DX: Z12.31 Encounter for screening mammogram for malignant neoplasm of breast (principal)
CPT/HCPCS: 77063; 77067

== ENCOUNTER 2025-09-23 12:41 | Outpatient (CLI) | payer MEDICARE, SELFPAY ==
--- NOTE | ~2025-09-23 | MM_ITS ---
EXAMINATION: MM screening don BI w davina HISTORY: Screening TECHNIQUE: Craniocaudal and mediolateral oblique 3-D tomosynthesis images were obtained and synthetic 2-D images were generated. CAD analysis was submitted and interpreted. COMPARISON: Comparison to multiple prior studies sequentially, with oldest reviewed study dated 08/10/2017. BREAST PARENCHYMAL COMPOSITION: Not Dense: The breasts are almost entirely fatty. FINDINGS: There is no evidence of suspicious mass, calcification, or architectural distortion to suggest malignancy in either breast. There has been no suspicious interval change. IMPRESSION: 1. No mammographic evidence of malignancy. 2. Recommend routine screening mammography in one year. BI-RADS Category 1: Negative Reviewed, dictated and finalized at location O. UTERIZED MILL RECORDER
== END 2025-09-23 12:42 | disposition home or self-care (01) ==
LOC: MICIMG 12:41
PROVIDERS: PCP Family Medicine; Visit Provider Family Medicine
DX: Z12.31 Encounter for screening mammogram for malignant neoplasm of breast (principal)
CPT/HCPCS: 77063; 77067